=== PATIENT | female | born 1945 | race African-American/Black ===

== ENCOUNTER 2023-06-15 07:52 | Inpatient (IN) | payer OTHER ==
[~2023-06-15] VITALS: Ht 167.6 cm; Wt 99.8 kg
[~2023-06-15 07:52] MED LIST: ASPIR 8181 MG; ATORVASTATIN CA40 MG; GLIPIZIDE ER2.5 MG; LOSARTAN POTASS50 MG; METFORMIN HCL850 MG
--- NOTE | 2023-06-15 07:58 | NUR ---
PACIENTE ALERTA Y ORIENTADA X 3. REFIERE FIEBRE Y VOMITOS DESDE PAZ EN LA TARDE. HOY VOMITOS X 2.
[2023-06-15 08:38] LABS: HEMATOCRIT 31.7 % (36.0-45.00); HEMOGLOBIN 10.2 g/dL (12.0-15.00); MEAN CELL VOLUME 79.4 fL (80.00-100.00); MEAN CORPUSCULAR HEMOGLOBIN 25.6 pg (27.00-32.0); MEAN CORPUSCULAR HGB CONC 32.2 g/dl (32.0-36.0); PLATELET COUNT 204 K/uL (150-450); RED BLOOD COUNT 3.99 M/uL (4.00-6.00); RED CELL DISTRIBUTION WIDTH 16.1 % (11.5-14.5)
--- NOTE | 2023-06-15 08:41 | NUR ---
PACIENTE EVALUADA POR DR. LOO QUIEN ORDENA TRATAMIENTO. SE ORIENTA PACIENTE SOBRE TRAATMIENTO QUIEN REFIERE ENTENDER. SE YULIANA MUESTRAS DE [facility] BAJO MEDIDAS ASEPTICAS POR MINH MARTIN. SE ADMINISTRAN MEDICAMENTOS BENJIE ORDEN MEDICA. SE MANTIENE PACIENTE EN ESPERA DE RESULTADOS.
--- NOTE | 2023-06-15 09:11 | NUR ---
SE REESTIMA ARTIE 422 SE NOTIFICA ANDREA
--- NOTE | 2023-06-15 09:12 | NUR ---
SE JANIA ALVA [address] MENDEZ
[2023-06-15 09:19] LABS: CALCIUM 8.9 mg/dL (8.5-10.1); CREATININE SERUM 2.68 mg/dL (0.55-1.02); GFR 17.33; POTASSIUM 3.65 mEq/L (3.5-5.1)
--- NOTE | 2023-06-15 10:28 | NUR ---
SE REESTIMA [address] AHN.
[2023-06-15 11:00] LABS: HEMATOCRIT 29.6 % (36.0-45.00); HEMOGLOBIN 9.9 g/dL (12.0-15.00); MEAN CELL VOLUME 78.6 fL (80.00-100.00); MEAN CORPUSCULAR HEMOGLOBIN 26.2 pg (27.00-32.0); MEAN CORPUSCULAR HGB CONC 33.3 g/dl (32.0-36.0); PLATELET COUNT 190 K/uL (150-450); RED BLOOD COUNT 3.77 M/uL (4.00-6.00); RED CELL DISTRIBUTION WIDTH 16.4 % (11.5-14.5)
[2023-06-15 13:09] LABS: URINE APPEARANCE Turbid; URINE BILIRRUBIN Negative (NEGATIVE); URINE BLOOD Small; URINE COLOR Yellow; URINE LEUKOCYTE Large; URINE NITRATE Negative
[2023-06-15 13:10] LABS: URINE EPITHELIAL CELLS 97.6 uL (0.0-38.8); URINE RBC 13.7 uL (0.0-20.8); URINE WBC 1121.4 uL (0.0-23.2)
[2023-06-15 13:40] LABS: URINE BACTERIA > 9821.5 uL (0.0-1933); URINE GLUCOSE 500 MG/DL (NEGATIVE); URINE PROTEIN 300 (NEGATIVE)
[2023-06-15 20:50] LABS: PHOSPHOROUS 2.4 mg/dL (2.5-4.9)
[2023-06-15 21:03] LABS: MAGNESIUM 1.4 mg/dL (1.8-2.4)
[2023-06-15 21:03] LABS: ABG PH 7.391 (7.35-7.45); ABG pCO2 28.3 mmHg (35-45)
[2023-06-15 21:04] LABS: ABG PO2 59.9 mmHg (80-100); BASE EXCESS -6.5 mmol/l; BICARBONATE 16.8 mmol/l (23-25); SaO2 89.8 %; Tco2 17.6 mmol/l; allen test SATISFACTORY; o2 21 %; puncture site RADIAL RIGHT
[2023-06-15 21:43] LABS: D DIMER 5.01 MG/L; INR 1.2; PARTIAL THROMBOPLASTIN TIME 30.1 SECONDS (22.0-34.0); PROTHROMBIN TIME 12.4 SECONDS (9.0-11.5)
[2023-06-16 05:01] LABS: HEMATOCRIT 30.4 % (36.0-45.00); MEAN CELL VOLUME 82.2 fL (80.00-100.00); MEAN CORPUSCULAR HGB CONC 30.2 g/dl (32.0-36.0); PLATELET COUNT 249 K/uL (150-450); RED BLOOD COUNT 3.71 M/uL (4.00-6.00); RED CELL DISTRIBUTION WIDTH 16.9 % (11.5-14.5)
[2023-06-16 05:02] LABS: HEMOGLOBIN 9.2 g/dL (12.0-15.00); MEAN CORPUSCULAR HEMOGLOBIN 24.7 pg (27.00-32.0)
[2023-06-16 05:23] LABS: ABG PH 7.064 (7.35-7.45); ABG PO2 217.3 mmHg (80-100); BASE EXCESS -18.3 mmol/l; BICARBONATE 11.4 mmol/l (23-25); SaO2 99.2 %; Tco2 12.7 mmol/l; allen test SATISFACTORY; o2 100 %; puncture site RADIAL LEFT
[2023-06-16 05:30] LABS: ALBUMIN 2.6 gm/dL (3.4-5.0); BILIRUBIN TOTAL 0.62 mg/dL (0.3-1.2); CREATININE SERUM 2.22 mg/dL (0.55-1.02); GFR 21.53; GLOBULINA 4.1 G/DL (2.4-3.5); POTASSIUM 4.25 mEq/L (3.5-5.1); TOTAL PROTEIN 6.7 gm/dL (6.4-8.2); TSH 0.383 uIU/mL (0.358-3.74)
[2023-06-16 08:23] LABS: MAGNESIUM 1.8 mg/dL (1.8-2.4)
[2023-06-16 10:52] LABS: ABG PO2 72.8 mmHg (80-100); ABG pCO2 54.1 mmHg (35-45); BASE EXCESS -17.5 mmol/l; BICARBONATE 13.7 mmol/l (23-25); SaO2 81.2 %; Tco2 15.3 mmol/l; allen test SATISFACTORY; o2 100 %; puncture site RADIAL LEFT
[2023-06-16 10:53] LABS: ABG PH 7.021 (7.35-7.45)
[2023-06-16 17:06] LABS: ABG PH 7.301 (7.35-7.45); ABG PO2 80.1 mmHg (80-100); ABG pCO2 36.4 mmHg (35-45)
[2023-06-16 17:07] LABS: BICARBONATE 17.5 mmol/l (23-25); SaO2 93.8 %; Tco2 18.7 mmol/l; allen test SATISFACTORY; o2 100 %; puncture site RADIAL RIGHT
[2023-06-17 10:27] LABS: ABG PH 7.328 (7.35-7.45); ABG PO2 50.2 mmHg (80-100); ABG pCO2 41.2 mmHg (35-45); SaO2 81.5 %
[2023-06-17 10:28] LABS: BASE EXCESS -4.5 mmol/l; BICARBONATE 21.2 mmol/l (23-25); Tco2 22.4 mmol/l
[2023-06-17 10:29] LABS: allen test SATISFACTORY; o2 100 %; puncture site RADIAL LEFT
[2023-06-18 07:36] LABS: CALCIUM 7.2 mg/dL (8.5-10.1); POTASSIUM 3.12 mEq/L (3.5-5.1)
[2023-06-18 07:55] LABS: GFR 8.93
[2023-06-18 07:59] LABS: CREATININE SERUM 4.76 mg/dL (0.55-1.02); PHOSPHOROUS 1.8 mg/dL (2.5-4.9)
[2023-06-18 08:36] LABS: ABG PH 7.453 (7.35-7.45); ABG PO2 136.3 mmHg (80-100); ABG pCO2 31.4 mmHg (35-45); BASE EXCESS -1.4 mmol/l; BICARBONATE 21.5 mmol/l (23-25); SaO2 99.2 %; Tco2 22.4 mmol/l
[2023-06-18 08:37] LABS: allen test SATISFACTORY; o2 60 %; puncture site RADIAL RIGHT
[2023-06-18 09:01] LABS: ALBUMIN 1.9 gm/dL (3.4-5.0); CALCIUM 7.2 mg/dL (8.5-10.1); GFR 8.58; PHOSPHOROUS 2.1 mg/dL (2.5-4.9); POTASSIUM 3.45 mEq/L (3.5-5.1)
[2023-06-18 09:09] LABS: CREATININE SERUM 4.93 mg/dL (0.55-1.02)
[2023-06-18 10:29] LABS: HEMATOCRIT 25.4 % (36.0-45.00); MEAN CELL VOLUME 77.3 fL (80.00-100.00); PLATELET COUNT 151 K/uL (150-450); RED BLOOD COUNT 3.28 M/uL (4.00-6.00); RED CELL DISTRIBUTION WIDTH 16.4 % (11.5-14.5)
[2023-06-18 10:31] LABS: MEAN CORPUSCULAR HEMOGLOBIN 26.2 pg (27.00-32.0)
[2023-06-18 10:32] LABS: HEMOGLOBIN 8.6 g/dL (12.0-15.00)
[2023-06-18 11:00] LABS: GFR 8.78; PHOSPHOROUS 2.2 mg/dL (2.5-4.9); POTASSIUM 3.11 mEq/L (3.5-5.1)
[2023-06-18 11:02] LABS: CREATININE SERUM 4.83 mg/dL (0.55-1.02)
[2023-06-19 08:56] LABS: ABG PH 7.472 (7.35-7.45); ABG PO2 177.2 mmHg (80-100); ABG pCO2 33.2 mmHg (35-45); BASE EXCESS 0.8 mmol/l; BICARBONATE 23.7 mmol/l (23-25); SaO2 99.6 %; Tco2 24.7 mmol/l; allen test SATISFACTORY; o2 50 %; puncture site RADIAL LEFT
[2023-06-20 08:32] LABS: ABG PH 7.463 (7.35-7.45); ABG PO2 155.2 mmHg (80-100); ABG pCO2 35.3 mmHg (35-45); BASE EXCESS 1.4 mmol/l; BICARBONATE 24.7 mmol/l (23-25); SaO2 99.5 %; Tco2 25.8 mmol/l; allen test SATISFACTORY; o2 40 %; puncture site RADIAL RIGHT
[2023-06-20 16:33] LABS: ABG PH 7.354 (7.35-7.45); ABG PO2 113.8 mmHg (80-100); ABG pCO2 44.3 mmHg (35-45); BASE EXCESS -1.5 mmol/l; SaO2 98.1 %
[2023-06-20 16:34] LABS: BICARBONATE 24.2 mmol/l (23-25); Tco2 25.5 mmol/l; allen test SATISFACTORY; o2 50 %; puncture site RADIAL LEFT
[2023-06-21 07:38] LABS: ABG PO2 181.6 mmHg (80-100); ABG pCO2 36.6 mmHg (35-45)
[2023-06-21 07:39] LABS: BASE EXCESS -0.8 mmol/l; BICARBONATE 23.2 mmol/l (23-25); SaO2 99.6 %; Tco2 24.3 mmol/l; allen test SATISFACTORY; puncture site RADIAL LEFT
[2023-06-21 07:40] LABS: o2 50 %
[2023-06-21 08:31] LABS: HEMATOCRIT 26.8 % (36.0-45.00); MEAN CELL VOLUME 77.9 fL (80.00-100.00); MEAN CORPUSCULAR HGB CONC 33.4 g/dl (32.0-36.0); PLATELET COUNT 184 K/uL (150-450); RED BLOOD COUNT 3.44 M/uL (4.00-6.00); RED CELL DISTRIBUTION WIDTH 16.9 % (11.5-14.5)
[2023-06-21 08:33] LABS: HEMOGLOBIN 8.9 g/dL (12.0-15.00); MEAN CORPUSCULAR HEMOGLOBIN 25.8 pg (27.00-32.0)
[2023-06-21 08:40] LABS: CALCIUM 7.7 mg/dL (8.5-10.1); GFR 7.39; PHOSPHOROUS 8.5 mg/dL (2.5-4.9); POTASSIUM 3.7 mEq/L (3.5-5.1)
[2023-06-21 09:32] LABS: CREATININE SERUM 5.61 mg/dL (0.55-1.02)
[2023-06-22 10:14] LABS: ABG PH 7.416 (7.35-7.45); ABG PO2 144.3 mmHg (80-100); ABG pCO2 36.2 mmHg (35-45); BASE EXCESS -1.2 mmol/l; BICARBONATE 22.8 mmol/l (23-25); SaO2 99.2 %; Tco2 23.9 mmol/l
[2023-06-22 10:15] LABS: allen test SATISFACTORY; o2 40 %; puncture site RADIAL RIGHT
[2023-06-23 09:40] LABS: ABG PH 7.473 (7.35-7.45); ABG PO2 178.1 mmHg (80-100); ABG pCO2 34.4 mmHg (35-45); BASE EXCESS 1.5 mmol/l; BICARBONATE 24.6 mmol/l (23-25)
[2023-06-23 09:41] LABS: Tco2 25.7 mmol/l; allen test SATISFACTORY; o2 40 %; puncture site RADIAL LEFT
[2023-06-23 09:42] LABS: SaO2 99.7 %
[2023-06-24 07:10] LABS: MEAN CELL VOLUME 78.2 fL (80.00-100.00); MEAN CORPUSCULAR HGB CONC 32.6 g/dl (32.0-36.0); PLATELET COUNT 161 K/uL (150-450); RED BLOOD COUNT 2.77 M/uL (4.00-6.00)
[2023-06-24 07:21] LABS: MEAN CORPUSCULAR HEMOGLOBIN 25.6 pg (27.00-32.0)
[2023-06-24 07:23] LABS: HEMATOCRIT 21.7 % (36.0-45.00)
[2023-06-24 07:24] LABS: HEMOGLOBIN 7.1 g/dL (12.0-15.00)
[2023-06-24 07:33] LABS: URINE APPEARANCE Cloudy; URINE BILIRRUBIN Negative (NEGATIVE); URINE BLOOD Small; URINE COLOR Yellow; URINE GLUCOSE Negative (NEGATIVE); URINE LEUKOCYTE Small; URINE NITRATE Negative; URINE PROTEIN 30 (NEGATIVE); URINE UROBILINOGEN 0.2 E.U./dl
[2023-06-24 07:55] LABS: URINE BACTERIA 88.2 uL (0.0-1933); URINE RBC 96.7 uL (0.0-20.8); URINE WBC 67.5 uL (0.0-23.2)
[2023-06-24 08:09] LABS: URINE CRYSTALS NEGATIVE /HPF; URINE MUCUS HEAVY
[2023-06-24 08:10] LABS: URINE YEAST MANY /hpf
[2023-06-24 08:25] LABS: ALBUMIN 1.9 gm/dL (3.4-5.0); BILIRUBIN TOTAL 0.52 mg/dL (0.3-1.2); CREATININE SERUM 3.4 mg/dL (0.55-1.02); GFR 13.17; GLOBULINA 4.1 G/DL (2.4-3.5); MAGNESIUM 2.8 mg/dL (1.8-2.4); POTASSIUM 3.4 mEq/L (3.5-5.1)
[2023-06-24 08:34] LABS: ABG PH 7.436 (7.35-7.45); ABG PO2 212.2 mmHg (80-100); ABG pCO2 41.2 mmHg (35-45); BASE EXCESS 2.7 mmol/l; BICARBONATE 27.1 mmol/l (23-25); SaO2 99.9 %; Tco2 28.4 mmol/l
[2023-06-24 08:35] LABS: allen test SATISFACTORY; o2 40 %; puncture site RADIAL LEFT
[2023-06-24 08:53] LABS: C-REACTIVE PROTEIN 15.3 MG/DL (0.00-0.29)
[2023-06-24 13:20] LABS: ABG PH 7.401 (7.35-7.45)
[2023-06-24 13:21] LABS: ABG PO2 148.8 mmHg (80-100); ABG pCO2 39.7 mmHg (35-45); BASE EXCESS -0.5 mmol/l; BICARBONATE 24.1 mmol/l (23-25); SaO2 99.3 %; Tco2 25.3 mmol/l
[2023-06-24 13:22] LABS: allen test SATISFACTORY; o2 40 %; puncture site RADIAL RIGHT
[2023-06-25 10:22] LABS: ABG PH 7.422 (7.35-7.45); ABG PO2 164.3 mmHg (80-100); ABG pCO2 40.3 mmHg (35-45); BASE EXCESS 1.2 mmol/l; BICARBONATE 25.6 mmol/l (23-25); Tco2 26.9 mmol/l; o2 40 %
[2023-06-25 10:23] LABS: allen test SATISFACTORY; puncture site RADIAL RIGHT
[2023-06-25 10:24] LABS: SaO2 99.5 %
[2023-06-25 13:54] LABS: ABG PO2 77.7 mmHg (80-100); ABG pCO2 38.5 mmHg (35-45); BASE EXCESS 0.8 mmol/l; Tco2 26.1 mmol/l; allen test SATISFACTORY; o2 40 %; puncture site RADIAL RIGHT
[2023-06-25 13:57] LABS: SaO2 95.8 %
[2023-06-26 08:11] LABS: ABG PO2 181.2 mmHg (80-100); BASE EXCESS 3.9 mmol/l; BICARBONATE 26.4 mmol/l (23-25); SaO2 99.7 %; Tco2 27.4 mmol/l
[2023-06-26 08:13] LABS: allen test SATISFACTORY; o2 40 %; puncture site RADIAL RIGHT
[2023-06-26 10:29] LABS: ABG pCO2 41.3 mmHg (35-45); SaO2 99.6 %
[2023-06-26 10:30] LABS: BASE EXCESS 2.6 mmol/l; BICARBONATE 27.1 mmol/l (23-25); Tco2 28.3 mmol/l; allen test SATISFACTORY; o2 40 %; puncture site RADIAL RIGHT
[2023-06-27 06:21] LABS: ABG PH 7.494 (7.35-7.45); ABG PO2 181.2 mmHg (80-100); ABG pCO2 33.2 mmHg (35-45); BASE EXCESS 2.3 mmol/l; SaO2 99.7 %
[2023-06-27 06:22] LABS: BICARBONATE 24.9 mmol/l (23-25); Tco2 25.9 mmol/l
[2023-06-27 06:25] LABS: allen test SATISFACTORY; o2 40 %; puncture site RADIAL RIGHT
[2023-06-27 07:59] LABS: ALBUMIN 1.9 gm/dL (3.4-5.0); BILIRUBIN TOTAL 0.49 mg/dL (0.3-1.2); CALCIUM 8.7 mg/dL (8.5-10.1); CREATININE SERUM 2.58 mg/dL (0.55-1.02); GFR 18.1; MAGNESIUM 2.4 mg/dL (1.8-2.4); POTASSIUM 3.72 mEq/L (3.5-5.1); TOTAL PROTEIN 6.9 gm/dL (6.4-8.2)
[2023-06-27 09:01] LABS: MEAN CELL VOLUME 80.5 fL (80.00-100.00); PLATELET COUNT 177 K/uL (150-450); RED BLOOD COUNT 2.79 M/uL (4.00-6.00); RED CELL DISTRIBUTION WIDTH 16.3 % (11.5-14.5)
[2023-06-27 09:02] LABS: MEAN CORPUSCULAR HEMOGLOBIN 25.8 pg (27.00-32.0)
[2023-06-27 09:03] LABS: HEMATOCRIT 22.5 % (36.0-45.00); HEMOGLOBIN 7.2 g/dL (12.0-15.00)
[2023-06-28 06:21] LABS: ABG pCO2 38.4 mmHg (35-45); BASE EXCESS 0.8 mmol/l; BICARBONATE 24.9 mmol/l (23-25); SaO2 99.3 %; Tco2 26.1 mmol/l
[2023-06-28 06:22] LABS: allen test SATISFACTORY; o2 35 %; puncture site RADIAL LEFT
[2023-06-28 08:05] LABS: MEAN CELL VOLUME 81.8 fL (80.00-100.00); MEAN CORPUSCULAR HGB CONC 31.1 g/dl (32.0-36.0); PLATELET COUNT 171 K/uL (150-450); RED BLOOD COUNT 2.69 M/uL (4.00-6.00); RED CELL DISTRIBUTION WIDTH 16.5 % (11.5-14.5)
[2023-06-28 08:19] LABS: ALBUMIN 1.8 gm/dL (3.4-5.0); CALCIUM 8.2 mg/dL (8.5-10.1); CREATININE SERUM 2.47 mg/dL (0.55-1.02); GFR 19.04; PHOSPHOROUS 3.6 mg/dL (2.5-4.9); POTASSIUM 3.34 mEq/L (3.5-5.1)
[2023-06-28 08:38] LABS: HEMOGLOBIN 6.8 g/dL (12.0-15.00); MEAN CORPUSCULAR HEMOGLOBIN 25.2 pg (27.00-32.0)
[2023-06-29 07:33] LABS: CALCIUM 7.7 mg/dL (8.5-10.1); CREATININE SERUM 1.93 mg/dL (0.55-1.02); GFR 25.31
[2023-06-29 07:58] LABS: POTASSIUM 2.96 mEq/L (3.5-5.1)
[2023-06-29 08:04] LABS: ABG PH 7.461 (7.35-7.45); ABG PO2 132.2 mmHg (80-100); ABG pCO2 34.7 mmHg (35-45); BASE EXCESS 0.9 mmol/l; BICARBONATE 24.1 mmol/l (23-25); SaO2 99.2 %; Tco2 25.2 mmol/l
[2023-06-29 08:05] LABS: allen test SATISFACTORY; o2 30 %; puncture site RADIAL RIGHT
[2023-06-29 18:00] LABS: PH,URINE 5.5 (5.0-8.0); URINE APPEARANCE Clear; URINE BILIRRUBIN Negative (NEGATIVE); URINE BLOOD Moderate; URINE COLOR Yellow; URINE LEUKOCYTE Small; URINE NITRATE Negative; URINE PROTEIN 30 (NEGATIVE); URINE UROBILINOGEN 0.2 E.U./dl
[2023-06-29 18:01] LABS: URINE BACTERIA 39.8 uL (0.0-1933); URINE EPITHELIAL CELLS 5.7 uL (0.0-38.8); URINE RBC 19.3 uL (0.0-20.8); URINE WBC 59.9 uL (0.0-23.2)
[2023-06-29 18:18] LABS: URINE GLUCOSE >=1000 MG/DL (NEGATIVE); URINE YEAST MODERATE /hpf
[2023-06-30 07:06] LABS: MEAN CORPUSCULAR HGB CONC 31.1 g/dl (32.0-36.0); PLATELET COUNT 181 K/uL (150-450); RED CELL DISTRIBUTION WIDTH 16.2 % (11.5-14.5)
[2023-06-30 07:11] LABS: MEAN CORPUSCULAR HEMOGLOBIN 24.8 pg (27.00-32.0)
[2023-06-30 07:12] LABS: HEMOGLOBIN 6.2 g/dL (12.0-15.00)
[2023-06-30 07:33] LABS: ALBUMIN 1.7 gm/dL (3.4-5.0); BILIRUBIN TOTAL 0.49 mg/dL (0.3-1.2); CALCIUM 7.7 mg/dL (8.5-10.1); CREATININE SERUM 1.88 mg/dL (0.55-1.02); GFR 26.09; GLOBULINA 4.6 G/DL (2.4-3.5); PHOSPHOROUS 3.6 mg/dL (2.5-4.9); POTASSIUM 3.34 mEq/L (3.5-5.1); TOTAL PROTEIN 6.3 gm/dL (6.4-8.2)
[2023-06-30 10:27] LABS: ABG PH 7.463 (7.35-7.45); ABG PO2 158.1 mmHg (80-100); ABG pCO2 33.3 mmHg (35-45); BASE EXCESS 0.3 mmol/l; BICARBONATE 23.4 mmol/l (23-25); SaO2 99.5 %; Tco2 24.4 mmol/l; allen test SATISFACTORY; o2 30 %; puncture site RADIAL LEFT
[2023-07-01 06:42] LABS: MEAN CELL VOLUME 79.9 fL (80.00-100.00); MEAN CORPUSCULAR HGB CONC 30.9 g/dl (32.0-36.0); PLATELET COUNT 206 K/uL (150-450); RED BLOOD COUNT 2.47 M/uL (4.00-6.00)
[2023-07-01 06:52] LABS: MEAN CORPUSCULAR HEMOGLOBIN 24.6 pg (27.00-32.0)
[2023-07-01 06:54] LABS: HEMATOCRIT 19.7 % (36.0-45.00); HEMOGLOBIN 6.1 g/dL (12.0-15.00)
[2023-07-01 07:10] LABS: ALBUMIN 1.7 gm/dL (3.4-5.0); BILIRUBIN TOTAL 0.43 mg/dL (0.3-1.2); CALCIUM 7.9 mg/dL (8.5-10.1); CREATININE SERUM 1.53 mg/dL (0.55-1.02); GFR 33.09; GLOBULINA 4.6 G/DL (2.4-3.5); MAGNESIUM 2.2 mg/dL (1.8-2.4); PHOSPHOROUS 2.8 mg/dL (2.5-4.9); POTASSIUM 3.28 mEq/L (3.5-5.1); TOTAL PROTEIN 6.3 gm/dL (6.4-8.2)
[2023-07-01 08:16] LABS: ABG PO2 154.8 mmHg (80-100); ABG pCO2 32.5 mmHg (35-45); BASE EXCESS 0.9 mmol/l; BICARBONATE 23.6 mmol/l (23-25); SaO2 99.5 %; Tco2 24.6 mmol/l
[2023-07-01 08:17] LABS: o2 30 %
[2023-07-01 08:18] LABS: allen test SATISFACTORY; puncture site RADIAL LEFT
[2023-07-01 10:35] LABS: ABG PH 7.467 (7.35-7.45); ABG PO2 143.3 mmHg (80-100); ABG pCO2 32.2 mmHg (35-45); SaO2 99.3 %
[2023-07-01 10:36] LABS: BASE EXCESS -0.1 mmol/l; BICARBONATE 22.7 mmol/l (23-25); Tco2 23.7 mmol/l
[2023-07-01 10:37] LABS: allen test SATISFACTORY; puncture site RADIAL LEFT
[2023-07-01 10:38] LABS: o2 30 %
[2023-07-02 08:35] LABS: ABG PH 7.441 (7.35-7.45); ABG PO2 122.6 mmHg (80-100); ABG pCO2 36.4 mmHg (35-45); BASE EXCESS 0.5 mmol/l; BICARBONATE 24.2 mmol/l (23-25); SaO2 98.9 %; Tco2 25.3 mmol/l
[2023-07-02 08:37] LABS: HEMATOCRIT 31.8 % (36.0-45.00); MEAN CELL VOLUME 78.6 fL (80.00-100.00); MEAN CORPUSCULAR HEMOGLOBIN 26.4 pg (27.00-32.0); MEAN CORPUSCULAR HGB CONC 33.6 g/dl (32.0-36.0); PLATELET COUNT 240 K/uL (150-450); RED BLOOD COUNT 4.05 M/uL (4.00-6.00); RED CELL DISTRIBUTION WIDTH 16.1 % (11.5-14.5)
[2023-07-02 08:37] LABS: allen test SATISFACTORY; o2 30 %; puncture site RADIAL RIGHT
[2023-07-02 08:43] LABS: HEMOGLOBIN 10.7 g/dL (12.0-15.00)
[2023-07-02 09:04] LABS: ALBUMIN 1.7 gm/dL (3.4-5.0); BILIRUBIN TOTAL 0.6 mg/dL (0.3-1.2); CALCIUM 8.4 mg/dL (8.5-10.1); CREATININE SERUM 1.73 mg/dL (0.55-1.02); GFR 28.71; GLOBULINA 5.1 G/DL (2.4-3.5); MAGNESIUM 2.1 mg/dL (1.8-2.4); POTASSIUM 3.92 mEq/L (3.5-5.1); TOTAL PROTEIN 6.8 gm/dL (6.4-8.2)
[2023-07-02 12:36] LABS: ABG PH 7.439 (7.35-7.45); ABG pCO2 37.3 mmHg (35-45); BASE EXCESS 0.8 mmol/l; BICARBONATE 24.7 mmol/l (23-25); SaO2 97.5 %; Tco2 25.8 mmol/l
[2023-07-02 12:37] LABS: allen test SATISFACTORY; o2 30 %; puncture site RADIAL RIGHT
[2023-07-02 12:39] LABS: ABG PH 7.442 (7.35-7.45); ABG PO2 148.2 mmHg (80-100); BASE EXCESS -0.2 mmol/l; BICARBONATE 23.3 mmol/l (23-25); SaO2 99.3 %; Tco2 24.4 mmol/l; o2 50 %
[2023-07-02 12:40] LABS: allen test SATISFACTORY; puncture site RADIAL RIGHT
[2023-07-04 08:03] LABS: HEMATOCRIT 34.8 % (36.0-45.00); MEAN CELL VOLUME 81.6 fL (80.00-100.00); MEAN CORPUSCULAR HEMOGLOBIN 25.7 pg (27.00-32.0); MEAN CORPUSCULAR HGB CONC 31.5 g/dl (32.0-36.0); PLATELET COUNT 303 K/uL (150-450); RED BLOOD COUNT 4.27 M/uL (4.00-6.00); RED CELL DISTRIBUTION WIDTH 15.9 % (11.5-14.5)
[2023-07-04 08:07] LABS: ALBUMIN 1.7 gm/dL (3.4-5.0); BILIRUBIN TOTAL 0.42 mg/dL (0.3-1.2); CALCIUM 8.3 mg/dL (8.5-10.1); CREATININE SERUM 1.32 mg/dL (0.55-1.02); GFR 39.23; GLOBULINA 4.6 G/DL (2.4-3.5); MAGNESIUM 2.1 mg/dL (1.8-2.4); POTASSIUM 3.07 mEq/L (3.5-5.1); TOTAL PROTEIN 6.3 gm/dL (6.4-8.2)
[2023-07-06 10:10] LABS: HEMATOCRIT 35.5 % (36.0-45.00); HEMOGLOBIN 11.7 g/dL (12.0-15.00); MEAN CELL VOLUME 79.6 fL (80.00-100.00); MEAN CORPUSCULAR HEMOGLOBIN 26.3 pg (27.00-32.0); PLATELET COUNT 271 K/uL (150-450); RED BLOOD COUNT 4.46 M/uL (4.00-6.00); RED CELL DISTRIBUTION WIDTH 16.2 % (11.5-14.5)
[2023-07-06 10:42] LABS: ALBUMIN 1.7 gm/dL (3.4-5.0); BILIRUBIN TOTAL 0.66 mg/dL (0.3-1.2); CALCIUM 8.3 mg/dL (8.5-10.1); CREATININE SERUM 1.17 mg/dL (0.55-1.02); GFR 45.09; GLOBULINA 4.4 G/DL (2.4-3.5); PHOSPHOROUS 2.6 mg/dL (2.5-4.9); POTASSIUM 3.39 mEq/L (3.5-5.1); TOTAL PROTEIN 6.1 gm/dL (6.4-8.2)
[2023-07-07 07:50] LABS: ALBUMIN 1.9 gm/dL (3.4-5.0); CALCIUM 8.3 mg/dL (8.5-10.1); CREATININE SERUM 1.07 mg/dL (0.55-1.02); GFR 49.99; PHOSPHOROUS 2.7 mg/dL (2.5-4.9); POTASSIUM 3.12 mEq/L (3.5-5.1)
[2023-07-09 08:22] LABS: HEMATOCRIT 35.4 % (36.0-45.00); HEMOGLOBIN 11.1 g/dL (12.0-15.00); MEAN CORPUSCULAR HEMOGLOBIN 25.3 pg (27.00-32.0); MEAN CORPUSCULAR HGB CONC 31.2 g/dl (32.0-36.0); PLATELET COUNT 210 K/uL (150-450); RED BLOOD COUNT 4.37 M/uL (4.00-6.00); RED CELL DISTRIBUTION WIDTH 15.9 % (11.5-14.5)
[2023-07-09 09:05] LABS: ALBUMIN 1.7 gm/dL (3.4-5.0); BILIRUBIN TOTAL 0.39 mg/dL (0.3-1.2); CREATININE SERUM 1.16 mg/dL (0.55-1.02); GFR 45.54; GLOBULINA 3.6 G/DL (2.4-3.5); PHOSPHOROUS 3.1 mg/dL (2.5-4.9); POTASSIUM 3.35 mEq/L (3.5-5.1); TOTAL PROTEIN 5.3 gm/dL (6.4-8.2)
[2023-07-09 10:00] LABS: PLATELET ESTIMATE NORMAL (NORMAL)
[2023-07-11 11:27] LABS: ABG PH 7.451 (7.35-7.45); ABG pCO2 36.4 mmHg (35-45)
[2023-07-11 11:28] LABS: BASE EXCESS 1.1 mmol/l; BICARBONATE 24.7 mmol/l (23-25); Tco2 25.8 mmol/l; allen test SATISFACTORY; o2 28 %; puncture site RADIAL RIGHT
[2023-07-11 11:32] LABS: SaO2 98.8 %
[2023-07-12 08:02] LABS: HEMATOCRIT 29.5 % (36.0-45.00); HEMOGLOBIN 9.6 g/dL (12.0-15.00); MEAN CELL VOLUME 80.2 fL (80.00-100.00); MEAN CORPUSCULAR HEMOGLOBIN 26.2 pg (27.00-32.0); MEAN CORPUSCULAR HGB CONC 32.6 g/dl (32.0-36.0); PLATELET COUNT 159 K/uL (150-450); RED BLOOD COUNT 3.68 M/uL (4.00-6.00)
[2023-07-12 08:24] LABS: ALBUMIN 1.7 gm/dL (3.4-5.0); BILIRUBIN TOTAL 0.33 mg/dL (0.3-1.2); CALCIUM 8.1 mg/dL (8.5-10.1); CREATININE SERUM 1.14 mg/dL (0.55-1.02); GFR 46.46; GLOBULINA 3.5 G/DL (2.4-3.5); MAGNESIUM 2.2 mg/dL (1.8-2.4); PHOSPHOROUS 3.7 mg/dL (2.5-4.9); POTASSIUM 4.36 mEq/L (3.5-5.1); TOTAL PROTEIN 5.2 gm/dL (6.4-8.2)
[2023-07-12 14:31] LABS: PH,URINE 7.5 (5.0-8.0); URINE APPEARANCE Cloudy; URINE BILIRRUBIN Negative (NEGATIVE); URINE BLOOD Large; URINE COLOR Yellow; URINE LEUKOCYTE Large; URINE NITRATE Negative; URINE PROTEIN 30 (NEGATIVE); URINE UROBILINOGEN 0.2 E.U./dl
[2023-07-12 14:34] LABS: URINE BACTERIA 373.5 uL (0.0-1933); URINE RBC 32.7 uL (0.0-20.8); URINE WBC 93.2 uL (0.0-23.2)
[2023-07-12 14:47] LABS: URINE GLUCOSE 100 MG/DL (NEGATIVE); URINE YEAST MODERATE /hpf
[2023-07-13 09:16] LABS: ABG PH 7.458 (7.35-7.45); ABG PO2 64.4 mmHg (80-100); ABG pCO2 37.8 mmHg (35-45); BASE EXCESS 2.5 mmol/l; BICARBONATE 26.2 mmol/l (23-25); SaO2 93.6 %
[2023-07-13 09:17] LABS: Tco2 27.4 mmol/l; allen test SATISFACTORY; o2 21 %; puncture site RADIAL RIGHT
[2023-07-15 06:30] LABS: HEMATOCRIT 29.7 % (36.0-45.00); HEMOGLOBIN 9.9 g/dL (12.0-15.00); MEAN CELL VOLUME 80.4 fL (80.00-100.00); MEAN CORPUSCULAR HEMOGLOBIN 26.9 pg (27.00-32.0); MEAN CORPUSCULAR HGB CONC 33.4 g/dl (32.0-36.0); PLATELET COUNT 145 K/uL (150-450); RED CELL DISTRIBUTION WIDTH 16.7 % (11.5-14.5)
[2023-07-15 07:27] LABS: ALBUMIN 1.9 gm/dL (3.4-5.0); BILIRUBIN TOTAL 0.37 mg/dL (0.3-1.2); CALCIUM 8.3 mg/dL (8.5-10.1); CREATININE SERUM 1.02 mg/dL (0.55-1.02); GFR 52.83; GLOBULINA 3.9 G/DL (2.4-3.5); MAGNESIUM 1.9 mg/dL (1.8-2.4); PHOSPHOROUS 3.1 mg/dL (2.5-4.9); POTASSIUM 4.03 mEq/L (3.5-5.1); TOTAL PROTEIN 5.8 gm/dL (6.4-8.2)
[2023-07-15 07:57] LABS: C-REACTIVE PROTEIN 7.49 MG/DL (0.00-0.29)
[2023-07-15 07:59] LABS: URINE APPEARANCE Cloudy; URINE BILIRRUBIN Negative (NEGATIVE); URINE BLOOD Moderate; URINE COLOR Yellow; URINE LEUKOCYTE Large; URINE NITRATE Negative; URINE UROBILINOGEN 0.2 E.U./dl
[2023-07-15 08:04] LABS: URINE BACTERIA 436.4 uL (0.0-1933); URINE EPITHELIAL CELLS 13.6 uL (0.0-38.8); URINE RBC 10.1 uL (0.0-20.8); URINE WBC 238.4 uL (0.0-23.2)
[2023-07-15 08:41] LABS: URINE GLUCOSE 100 MG/DL (NEGATIVE); URINE PROTEIN 100 (NEGATIVE)
[2023-07-15 08:42] LABS: URINE CRYSTALS MODERATE /HPF; URINE YEAST MODERATE /hpf
[2023-07-18 09:13] LABS: HEMATOCRIT 28.4 % (36.0-45.00); HEMOGLOBIN 9.3 g/dL (12.0-15.00); MEAN CORPUSCULAR HEMOGLOBIN 26.5 pg (27.00-32.0); MEAN CORPUSCULAR HGB CONC 32.8 g/dl (32.0-36.0); PLATELET COUNT 155 K/uL (150-450); RED CELL DISTRIBUTION WIDTH 16.9 % (11.5-14.5)
[2023-07-18 09:17] LABS: BILIRUBIN TOTAL 0.46 mg/dL (0.3-1.2); CALCIUM 8.5 mg/dL (8.5-10.1); CREATININE SERUM 0.96 mg/dL (0.55-1.02); GFR 56.66; GLOBULINA 3.9 G/DL (2.4-3.5); MAGNESIUM 1.9 mg/dL (1.8-2.4); PHOSPHOROUS 2.9 mg/dL (2.5-4.9); POTASSIUM 3.84 mEq/L (3.5-5.1); TOTAL PROTEIN 5.9 gm/dL (6.4-8.2)
[2023-07-18 09:22] LABS: C-REACTIVE PROTEIN 6.46 MG/DL (0.00-0.29)
[2023-07-20 08:36] LABS: CREATININE SERUM 1.35 mg/dL (0.55-1.02); GFR 38.23; POTASSIUM 3.54 mEq/L (3.5-5.1)
[2023-07-21 08:32] LABS: HEMATOCRIT 26.6 % (36.0-45.00); MEAN CELL VOLUME 81.6 fL (80.00-100.00); MEAN CORPUSCULAR HGB CONC 32.5 g/dl (32.0-36.0); RED BLOOD COUNT 3.26 M/uL (4.00-6.00); RED CELL DISTRIBUTION WIDTH 16.4 % (11.5-14.5)
[2023-07-21 08:33] LABS: MEAN CORPUSCULAR HEMOGLOBIN 26.3 pg (27.00-32.0)
[2023-07-21 08:34] LABS: HEMOGLOBIN 8.6 g/dL (12.0-15.00); PLATELET COUNT 117 K/uL (150-450)
[2023-07-21 08:46] LABS: ALBUMIN 1.9 gm/dL (3.4-5.0); BILIRUBIN TOTAL 0.38 mg/dL (0.3-1.2); CREATININE SERUM 1.29 mg/dL (0.55-1.02); GFR 40.29; GLOBULINA 3.6 G/DL (2.4-3.5); MAGNESIUM 1.9 mg/dL (1.8-2.4); PHOSPHOROUS 2.6 mg/dL (2.5-4.9); POTASSIUM 3.69 mEq/L (3.5-5.1); TOTAL PROTEIN 5.5 gm/dL (6.4-8.2)
[2023-07-21 08:49] LABS: C-REACTIVE PROTEIN 6.94 MG/DL (0.00-0.29)
[2023-07-22 06:27] LABS: ob NEGATIVE (NEGATIVE)
[2023-07-23 06:40] LABS: HEMATOCRIT 34.8 % (36.0-45.00); HEMOGLOBIN 11.6 g/dL (12.0-15.00); MEAN CORPUSCULAR HEMOGLOBIN 27.3 pg (27.00-32.0); MEAN CORPUSCULAR HGB CONC 33.3 g/dl (32.0-36.0); PLATELET COUNT 136 K/uL (150-450); RED BLOOD COUNT 4.25 M/uL (4.00-6.00); RED CELL DISTRIBUTION WIDTH 15.7 % (11.5-14.5)
== END 2023-07-23 19:54 | disposition home or self-care (01) | DRG 870 ==
LOC: ER 07:52 → ICU 19:15 → MEDJ 07-04 20:29
PROVIDERS: Emergency Medicine; General Practice; Internal Medicine; Internal Medicine Critical Care Medicine; Internal Medicine Endocrinology, Diabetes & Metabolism; Internal Medicine Infectious Disease; Internal Medicine Nephrology; ADMIT Internal Medicine; ATTEND Internal Medicine
PROC: BW21ZZZ Computerized Tomography (CT Scan) of Abdomen and Pelvis (ICD-10-PCS; 2023-06-15)
PROC: 5A1955Z Respiratory Ventilation, Greater than 96 Consecutive Hours (ICD-10-PCS; principal; 2023-06-16)
PROC: 0BH18EZ Insertion of Endotracheal Airway into Trachea, Via Natural or Artificial Opening Endoscopic (ICD-10-PCS; 2023-06-16)
PROC: BW28ZZZ Computerized Tomography (CT Scan) of Head (ICD-10-PCS; 2023-06-16)
PROC: B246ZZZ Ultrasonography of Right and Left Heart (ICD-10-PCS; 2023-06-16)
PROC: BW28ZZZ Computerized Tomography (CT Scan) of Head (ICD-10-PCS; 2023-06-24)
PROC: 30233N1 Transfusion of Nonautologous Red Blood Cells into Peripheral Vein, Percutaneous Approach (ICD-10-PCS; 2023-07-01)
PROC: 3E0F7GC Introduction of Other Therapeutic Substance into Respiratory Tract, Via Natural or Artificial Opening (ICD-10-PCS; 2023-07-02)
PROC: 4A12X4Z Monitoring of Cardiac Electrical Activity, External Approach (ICD-10-PCS; 2023-07-05)
PROC: BW40ZZZ Ultrasonography of Abdomen (ICD-10-PCS; 2023-07-15)
PROC: 02HV33Z Insertion of Infusion Device into Superior Vena Cava, Percutaneous Approach (ICD-10-PCS; 2023-07-17)
PROC: 30233K1 Transfusion of Nonautologous Frozen Plasma into Peripheral Vein, Percutaneous Approach (ICD-10-PCS; 2023-07-21)
DX: A41.9 Sepsis, unspecified organism (principal); I21.A1 Myocardial infarction type 2; J18.9 Pneumonia, unspecified organism; J96.01 Acute respiratory failure with hypoxia; J96.02 Acute respiratory failure with hypercapnia; R65.21 Severe sepsis with septic shock; N17.8 Other acute kidney failure; N39.0 Urinary tract infection, site not specified; D64.89 Other specified anemias; E11.65 Type 2 diabetes mellitus with hyperglycemia; I12.9 Hypertensive chronic kidney disease with stage 1 through stage 4 chronic kidney disease, or unspecified chronic kidney disease; E11.22 Type 2 diabetes mellitus with diabetic chronic kidney disease; Z79.4 Long term (current) use of insulin; E78.49 Other hyperlipidemia; D72.828 Other elevated white blood cell count; B96.5 Pseudomonas (aeruginosa) (mallei) (pseudomallei) as the cause of diseases classified elsewhere

== ENCOUNTER 2023-07-25 02:26 | Inpatient (IN) | payer OTHER ==
[~2023-07-25] VITALS: Ht 160 cm; Wt 72.6 kg
--- NOTE | 2023-07-25 02:55 | NUR ---
SE RECIBE PACIENTE ALERTA Y ORIENTADA EN PERSONA EN AMBULANCIA POR DIFICULTAD RESPIRATORIA. FAMILIAR REFIERE TRAERLA DEBIDO A QUE NO ESTA RESPIRANDO TELLY Y TIENE TOS SECA DESDE QUE LA DIERON DE JESSICA. SE OBSERVA EDEMA EN AMBOS BRAZOS. SE REALIZA EKG Y SE COLOCA EN UNIDAD DE DOLOR DE PECHO CONECTADA A MONITOR CARDIACO Y OXIMETRIA DE PULSO. PACIENTE TIENE HEMIPARESIS DEL LADO ELKIN. SE NOTIFICA A DR. MARIN.
[2023-07-25 03:29] LABS: ABG PH 7.455 (7.35-7.45); ABG PO2 98.1 mmHg (80-100); ABG pCO2 37.9 mmHg (35-45); BASE EXCESS 2.3 mmol/l; BICARBONATE 26.1 mmol/l (23-25); Tco2 27.2 mmol/l
[2023-07-25 03:54] LABS: HEMATOCRIT 35.3 % (36.0-45.00); HEMOGLOBIN 11.9 g/dL (12.0-15.00); MEAN CELL VOLUME 81.1 fL (80.00-100.00); MEAN CORPUSCULAR HEMOGLOBIN 27.4 pg (27.00-32.0); MEAN CORPUSCULAR HGB CONC 33.8 g/dl (32.0-36.0); PLATELET COUNT 159 K/uL (150-450); RED BLOOD COUNT 4.35 M/uL (4.00-6.00); RED CELL DISTRIBUTION WIDTH 16.5 % (11.5-14.5)
--- NOTE | 2023-07-25 04:03 | NUR ---
SE YULINAA MUESTRAS DE LAB BAJO MEDIDAS ASEPTICAS. SE NOTIFICO A PERSONAL DE TR, ABG'S Y TERAPIAS RESPIRATORIAS PENDIENTES. SE NOTIFICA PLACA PORTABLE PEND. PTE MANEJADO POR MINH TREVINO
[2023-07-25 04:13] LABS: ALBUMIN 2.2 gm/dL (3.4-5.0); BILIRUBIN TOTAL 0.42 mg/dL (0.3-1.2); CALCIUM 8.5 mg/dL (8.5-10.1); CREATININE SERUM 1.25 mg/dL (0.55-1.02); GFR 41.78; GLOBULINA 4.1 G/DL (2.4-3.5); POTASSIUM 3.84 mEq/L (3.5-5.1); TOTAL PROTEIN 6.3 gm/dL (6.4-8.2)
--- NOTE | 2023-07-25 05:08 | NUR ---
PTE ACTIVA Y ORIENTADA EN PERSONA, ACOMPANADA POR BRODERICK HIJA. FAMILIAR FIRMA DOCUMENT DE DIRECTRISES ANTICIPADAS PARA DNR, DNI. SE LE [place] EN MANO IZQUIERDA IDENTIFICANDO DNR Y DNI. DOCUMENTO SE ENCUENTRA EN RECORD FISICO DE PTE.
[2023-07-25 05:17] LABS: PH,URINE 5.5 (5.0-8.0); URINE APPEARANCE Cloudy; URINE BILIRRUBIN Negative (NEGATIVE); URINE BLOOD Trace; URINE COLOR Yellow; URINE LEUKOCYTE Moderate; URINE NITRATE Negative; URINE UROBILINOGEN 0.2 E.U./dl
[2023-07-25 05:21] LABS: URINE BACTERIA 258.2 uL (0.0-1933); URINE EPITHELIAL CELLS 5.1 uL (0.0-38.8); URINE WBC 193.5 uL (0.0-23.2)
[2023-07-25 05:43] LABS: URINE PROTEIN 100 (NEGATIVE)
[2023-07-25 05:44] LABS: URINE GLUCOSE 500 MG/DL (NEGATIVE); URINE YEAST MANY /hpf
[2023-07-25 06:32] LABS: allen test SATISFACTORY; o2 24 %; puncture site RADIAL LEFT
--- NOTE | 2023-07-25 07:25 | NUR ---
SE RECIBE PACIENTE EN EL AREA DE CHEST PAIN CAMA # 18. SE OFRECE GENNARO PARA EVALUAR CONDICION. PACIENTE ALERTA Y ORIENTADA, ACOMPANADA DE FAMILIAR. PACIENTE CONECTADA A MONITOR CARDIACO CON SATUROMETRO, CANULA NASAL A 3 LITROS, MASSEY PATENTE A GRAVEDAD CON ORINA AMARILLO INTENSO Y CON 2 VENO PUNCIONES PATENTES EN BRAZO DERECHO, ANGIO #22 Y #18 LIBRES DE EDEMA Y/O ERITEMA, BAJANDO .9NSS. SE MIDEN Y DOCUMENTAN S/V. BARANDAS ELEVADAS POR BRODERICK SEGURIDAD. SE MONITOREA POR CAMBIOS SIGNIFICATIVOS.
--- NOTE | 2023-07-25 11:18 | NUR ---
SE NOTIFICA TERAPIA A MIS SANJURJO TERAPIASTA A LAS 10:55AM Y A MIS DAUGHERTY A LAS 11:15AM
[2023-07-25] MEDS ORDERED: TOPROL XL25 M1 (12:56)
[2023-07-25] MEDS ORDERED: HYDRALAZINE HCL50 MG PO (12:56)
[2023-07-25] MEDS ORDERED: AMLODIPINE-OLM1 EACH (12:57)
[2023-07-25 15:10] LABS: ABG pCO2 35.6 mmHg (35-45); BASE EXCESS 3.4 mmol/l; BICARBONATE 26.5 mmol/l (23-25)
[2023-07-25 15:11] LABS: Tco2 27.6 mmol/l; allen test SATISFACTORY; o2 32 %; puncture site RADIAL RIGHT
[2023-07-25 15:12] LABS: SaO2 99.3 %
--- NOTE | 2023-07-25 15:19 | NUR ---
SE RECIBE PACIENTE ALERTA Y ORIENTADA X3 EN COMPANIA POR FAMILIAR. PTE EN CAMA EN POSICION SEMI SANCHEZ CON BARANDAS ELEVADAS CONECTADA A MONITOR CARDIACO Y OXIMETRIA. PTE CON CANULA NASAL A 3L. SE DA GENNARO DE OBSERVACION, PTE CON ANGIO #18 Y #22 EN BRAZO DERECHO, SE OBSERVA AREA ESTEPHANIE DE EDEMA Y ENROJECIMIENTO. PTE CON 0.9NSS BAJANDO PATENTE. PTE CON MASSEY CON ORINA AMARILLO JOE ABUNDANTE.
[2023-07-25 20:46] LABS: D DIMER 4.15 MG/L; PARTIAL THROMBOPLASTIN TIME 27.9 SECONDS (22.0-34.0)
[2023-07-25 20:48] LABS: INR 1.04; PROTHROMBIN TIME 10.9 SECONDS (9.0-11.5)
[2023-07-27 05:58] LABS: ABG PH 7.447 (7.35-7.45); ABG PO2 94.5 mmHg (80-100); ABG pCO2 42.1 mmHg (35-45); BICARBONATE 28.4 mmol/l (23-25); SaO2 97.7 %; Tco2 29.7 mmol/l
[2023-07-27 05:59] LABS: allen test SATISFACTORY; o2 21 %; puncture site RADIAL LEFT
[2023-07-27 06:48] LABS: CALCIUM 8.2 mg/dL (8.5-10.1); CREATININE SERUM 0.96 mg/dL (0.55-1.02); GFR 56.66; PHOSPHOROUS 3.2 mg/dL (2.5-4.9); POTASSIUM 3.6 mEq/L (3.5-5.1)
[2023-07-28 08:10] LABS: HEMATOCRIT 37.3 % (36.0-45.00); HEMOGLOBIN 12.1 g/dL (12.0-15.00); MEAN CELL VOLUME 83.2 fL (80.00-100.00); MEAN CORPUSCULAR HGB CONC 32.5 g/dl (32.0-36.0); PLATELET COUNT 215 K/uL (150-450); RED BLOOD COUNT 4.48 M/uL (4.00-6.00); RED CELL DISTRIBUTION WIDTH 15.5 % (11.5-14.5)
[2023-07-28 08:47] LABS: ALBUMIN 2.1 gm/dL (3.4-5.0); BILIRUBIN TOTAL 0.45 mg/dL (0.3-1.2); CALCIUM 8.5 mg/dL (8.5-10.1); CREATININE SERUM 0.96 mg/dL (0.55-1.02); GFR 56.66; GLOBULINA 4.2 G/DL (2.4-3.5); MAGNESIUM 1.7 mg/dL (1.8-2.4); PHOSPHOROUS 2.9 mg/dL (2.5-4.9); POTASSIUM 3.37 mEq/L (3.5-5.1); TOTAL PROTEIN 6.3 gm/dL (6.4-8.2)
[2023-07-28 08:52] LABS: C-REACTIVE PROTEIN 6.28 MG/DL (0.00-0.29)
[2023-07-29 07:33] LABS: PH,URINE 7.5 (5.0-8.0); URINE APPEARANCE Clear; URINE BACTERIA 134.8 uL (0.0-1933); URINE BILIRRUBIN Negative (NEGATIVE); URINE BLOOD Small; URINE COLOR Yellow; URINE EPITHELIAL CELLS 7.8 uL (0.0-38.8); URINE GLUCOSE Negative (NEGATIVE); URINE LEUKOCYTE Moderate; URINE NITRATE Negative; URINE RBC 22.2 uL (0.0-20.8); URINE UROBILINOGEN 0.2 E.U./dl; URINE WBC 240.8 uL (0.0-23.2)
[2023-07-29 07:34] LABS: URINE PROTEIN 100 (NEGATIVE)
[2023-07-29 07:51] LABS: URINE YEAST FEW /hpf
[2023-08-02 08:14] LABS: ALBUMIN 2.5 gm/dL (3.4-5.0); BILIRUBIN TOTAL 0.39 mg/dL (0.3-1.2); CALCIUM 9.1 mg/dL (8.5-10.1); CREATININE SERUM 0.93 mg/dL (0.55-1.02); GFR 58.61; GLOBULINA 4.6 G/DL (2.4-3.5); MAGNESIUM 1.8 mg/dL (1.8-2.4); PHOSPHOROUS 3.3 mg/dL (2.5-4.9); POTASSIUM 3.62 mEq/L (3.5-5.1); TOTAL PROTEIN 7.1 gm/dL (6.4-8.2)
[2023-08-02 08:49] LABS: HEMATOCRIT 38.1 % (36.0-45.00); HEMOGLOBIN 12.3 g/dL (12.0-15.00); MEAN CELL VOLUME 83.2 fL (80.00-100.00); MEAN CORPUSCULAR HEMOGLOBIN 26.8 pg (27.00-32.0); MEAN CORPUSCULAR HGB CONC 32.2 g/dl (32.0-36.0); PLATELET COUNT 265 K/uL (150-450); RED BLOOD COUNT 4.57 M/uL (4.00-6.00); RED CELL DISTRIBUTION WIDTH 15.8 % (11.5-14.5)
== END 2023-08-05 14:10 | disposition home or self-care (01) | DRG 982 ==
LOC: ER 02:26 → MEDI 17:49
PROVIDERS: Emergency Medicine; General Practice; Internal Medicine; Internal Medicine Infectious Disease; ADMIT Internal Medicine; ATTEND Internal Medicine
PROC: BW24ZZZ Computerized Tomography (CT Scan) of Chest and Abdomen (ICD-10-PCS; 2023-07-25)
PROC: B24BZZZ Ultrasonography of Heart with Aorta (ICD-10-PCS; 2023-07-25)
PROC: 4A12X4Z Monitoring of Cardiac Electrical Activity, External Approach (ICD-10-PCS; 2023-07-26)
PROC: 0JD70ZZ Extraction of Back Subcutaneous Tissue and Fascia, Open Approach (ICD-10-PCS; principal; 2023-08-01)
DX: N39.0 Urinary tract infection, site not specified (principal); E87.1 Hypo-osmolality and hyponatremia; N17.9 Acute kidney failure, unspecified; I13.0 Hypertensive heart and chronic kidney disease with heart failure and stage 1 through stage 4 chronic kidney disease, or unspecified chronic kidney disease; I69.351 Hemiplegia and hemiparesis following cerebral infarction affecting right dominant side; Z16.24 Resistance to multiple antibiotics; L89.159 Pressure ulcer of sacral region, unspecified stage; L08.9 Local infection of the skin and subcutaneous tissue, unspecified; Z74.01 Bed confinement status; I50.9 Heart failure, unspecified; N18.9 Chronic kidney disease, unspecified; E11.22 Type 2 diabetes mellitus with diabetic chronic kidney disease; Z79.4 Long term (current) use of insulin; E11.65 Type 2 diabetes mellitus with hyperglycemia; B96.5 Pseudomonas (aeruginosa) (mallei) (pseudomallei) as the cause of diseases classified elsewhere; B96.1 Klebsiella pneumoniae [K. pneumoniae] as the cause of diseases classified elsewhere; B95.2 Enterococcus as the cause of diseases classified elsewhere; Z20.822 Contact with and (suspected) exposure to COVID-19